=== PATIENT | female | born 1970 | race Caucasian/White ===

== ENCOUNTER 2022-11-20 07:25 | Day surgery (SDC) | payer OTHER ==
[2022-11-19 08:22] VITALS: BMI 19.5
[2022-11-20] MEDS ORDERED: PROPOFOL 120 ML ONE (07:29)
[2022-11-20] MEDS ORDERED: LIDOCAINE HCL/PF 2% SDV 5ML VIAL ONE (07:29)
[2022-11-20 08:49] VITALS: TEMP 97
[2022-11-20 09:26] VITALS: BP 92/60; PULSE 54; RESP 19
== END 2022-11-20 09:26 | disposition home or self-care (01) ==
LOC: FASU-ENDO 07:25
PROVIDERS: ATTEND Internal Medicine Gastroenterology
PROC: 0DJD8ZZ Inspection of Lower Intestinal Tract, Via Natural or Artificial Opening Endoscopic (ICD-10-PCS; principal; 2022-11-20 08:15)
DX: Z12.11 Encounter for screening for malignant neoplasm of colon (principal)